=== PATIENT | male | born 1960 | race Caucasian/White ===

== ENCOUNTER 2023-09-03 14:04 | Outpatient (RCR) | payer OTHER, SELFPAY | END 2023-09-04 07:39 | disposition home or self-care (01) | LOC: RPT 14:04 | PROVIDERS: ATTENDING PHYSICIAN Physical Medicine & Rehabilitation | DX: M51.34 Other intervertebral disc degeneration, thoracic region (principal); S29.012A Strain of muscle and tendon of back wall of thorax, initial encounter; S39.011A Strain of muscle, fascia and tendon of abdomen, initial encounter; R29.3 Abnormal posture; Z73.6 Limitation of activities due to disability | CPT/HCPCS: 97010; 97110; 97112; 97530 ==